=== PATIENT | female | born 2000 | race Caucasian/White ===

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

== ENCOUNTER 2020-02-12 17:21 | Emergency (ER) | payer OTHER, SELFPAY ==
[2020-02-12 17:30] VITALS: BP 141/90; PULSE 119; RESP 22; TEMP 36.7; O2SAT 100
--- NOTE | 2020-02-12 17:43 | ED.GENADULT ---
HPI - General Adult General Chief complaint: Anxiety Stated complaint: Took Sertrline and has chest pain Time Seen by Provider: 02/12/20 17:50 Source: patient Mode of arrival: ambulatory Limitations: no limitations History of Present Illness HPI narrative: 19-year-old female patient presents to the [facility] with complaints of midsternal chest pain that started today. Patient states she took half a pill of her sertraline that was prescribed to her back in 2017. Patient states she took it because she has been feeling very anxious and depressed recently. Patient does have history of anxiety, depression and panic attacks. Patient states about 30 minutes after she took the 25 mg sertraline she started having the chest pain. Denies shortness of breath, denies lightheadedness, dizziness or vision changes. Denies any fevers, body aches or chills. Denies any abdominal pain, nausea, vomiting or diarrhea. Patient states she was on the antidepressant medications consistently a couple of years ago but has not been on it for quite a while now and does not take anything consistently for her depression anxiety. Patient states that because she is over 18 she no longer sees her [facility] skinner and is looking for a new adult doctor. Patient denies any SI or HI at this time Related Data Home Medications Medication Instructions Recorded Confirmed No Home Medications 07/05/19 02/12/20 Allergies Allergy/AdvReac Type Severity Reaction Status Date / Time No Known Allergies Allergy Unknown Unverified 02/12/20 17:38 Review of Systems Review of Systems: Narrative: CONSTITUTIONAL: Denies fever, chills, or sweats. EYES: Denies visual changes, redness, or discharge. ENT: Denies rhinorrhea, congestion, sore throat, or otalgia. CARDIOVASCULAR: Positive midsternal chest pain, denies palpitations, or edema. RESPIRATORY: Denies cough or dyspnea. GASTROINTESTINAL: Denies abdominal pain, nausea, vomiting, or diarrhea. GENITOURINARY: Denies dysuria or hematuria. SKIN: Denies rash or itching. MUSCULOSKELETAL: Denies back pain, joint pain, or myalgia. NEUROLOGIC: Denies headache, numbness, or weakness. PSYCHIATRIC: Positive anxiety and depression. [facility] Past Medical History Medical History (Updated 02/12/20 @ 18:14 by VAUGHN Alaniz) Anxiety Ear infection Panic attacks UTI (urinary tract infection) Surgical History Surgical History History of tonsillectomy Social History Social History Smoking status: Never smoker Gender identity (if verbalized by the patient): Female Comments At the time of my signature I agree with nursing past medical history, surgical, social, and family history. There is no relevant family history pertinent to the presenting complaint. Exam Narrative: Exam Narrative: GENERAL: Well-appearing, well-nourished, and in no acute distress. HEAD: Normocephalic, atraumatic. EYES: PERRLA and EOMI. ENT: Nares clear, no rhinorrhea or epistaxis. Mucous membranes moist. NECK: Supple. No lymphadenopathy CHEST: Clear to auscultation. No respiratory distress. Patient will talk in clear complete sentences. HEART: Regular rate and rhythm. No murmur heard. Normal peripheral pulses. ABDOMEN: Soft, nontender, nondistended, normal active bowel sounds. EXTREMITIES: Normal range of motion. No edema. SKIN: Warm, dry, no rash. NEURO: No focal deficits. Alert and oriented x3. Course Reevaluation(s) Reevaluation #1: Discussed with patient that I think that her chest pain and her higher heart rate is most likely due to her anxiety however we can send her to the ER if she would like further evaluation of the chest pain. Patient states she would like to go to the ER because she has a family history of cardiac issues and just wants to make sure her heart is okay. Discussed with patient that we will send her to
== END 2020-02-12 18:09 | disposition short-term general hospital (02) ==
PROVIDERS: Emergency Provider Nurse Practitioner Family
DX: F41.9 Anxiety disorder, unspecified (principal); R07.9 Chest pain, unspecified; R00.0 Tachycardia, unspecified
CPT/HCPCS: 99212; G0463

== ENCOUNTER 2020-02-12 18:27 | Emergency (ER) | payer OTHER, SELFPAY ==
--- NOTE | ~2020-02-12 | XR_ITS ---
XR chest 2V DATE: 02/12/2020 19:49 INDICATION: Lower chest pain TECHNIQUE: PA and lateral views COMPARISON: 04/21/2014 PA and lateral chest FINDINGS: No pulmonary infiltrate or consolidation, pleural effusion or pulmonary vascular congestion or pneumothorax. Normal heart size. No hilar or mediastinal enlargement. Included skeletal structure s are unremarkable. IMPRESSION: No active cardiopulmonary disease Reviewed, dictated and finalized at location A.
[2020-02-12 18:34] VITALS: BP 130/82; PULSE 114; RESP 17; TEMP 36.6; O2SAT 99
--- NOTE | 2020-02-12 19:08 | ECG_ITS ---
Measurements Intervals [place] Rate: 148 P: 76 VT: 141 QRS: 62 QRSD: 73 T: 42 QT: 267 QTc: 420 Interpretive Statements SINUS TACHYCARDIA MINIMAL Q WAVES- ANTEROLAT/INF LEADS BASELINE ARTIFACT- II, III, AVF ABNORMAL ECG Electronically Signed On 02-12-2020 20:39:41 CDT by Jules Singh D.O.
[2020-02-12 19:28] VITALS: BP 139/89; PULSE 132; RESP 19; O2SAT 100
[2020-02-12 19:53] LABS: Basophils Percent Auto 0.4 % (0.2-1.2); Eosinophils Percent Auto 0.1 % (0-4.4); Hematocrit 40.8 % (37.0-47.0); Hemoglobin 14.7 g/dL (12.0-15.0); Immature Granulocyte Absolute 0.03 K/mm3 (0.00-0.031); Immature Granulocyte Percent A 0.3 % (0-0.5); Lymphocytes Absolute Auto 1.41 K/mm3 (0.9-3.2); Lymphocytes Percent Auto 14.6 % (18.3-44.2); Mean Corpuscular Hemoglobin 32.5 pg (26-34); Mean Corpuscular Volume 90.1 fl (80-100); Mean Platelet Volume 12.1 fl (7.4-10.4); Monocytes Absolute Auto 0.4 K/mm3 (0.1-0.6); Monocytes Percent Auto 4.5 % (2.6-8.5); Neutrophils Absolute Auto 7.7 K/mm3 (1.3-6.7); Neutrophils Percent Auto 80.1 % (45.5-73.1); Platelet Count Result 182 k/mm3 (150-375); Red Blood Count 4.53 M/mm3 (4.2-5.4); Red Cell Distribution Width 11.4 % (11.5-14.5); White Blood Count 9.6 K/mm3 (4.5-10.0)
[2020-02-12 19:57] LABS: Anion Gap 8 mmol/L (8-16); Blood Urea Nitrogen 10 mg/dL (8-21); Calcium 9.7 mg/dL (8.9-10.7); Carbon Dioxide 25 mmol/L (22-30); Chloride 107 mmol/L (98-107); Estimated CRCL calculation 101 ml/min; Estimated Glomerular Filt Rate > 60; Glucose 94 mg/dL (65-105); Potassium 3.9 mmol/L (3.4-5.0); Sodium 140 mmol/L (134-143)
[2020-02-12 20:09] LABS: Troponin I < 0.012 ng/mL (0.000-0.034)
[2020-02-12 20:12] LABS: INR 1.2; Prothrombin Time 14.6 Seconds (11.1-14.7)
[2020-02-12 20:13] LABS: Partial Thromboplastin Time 30.5 SECONDS (22.3-36.8)
--- NOTE | 2020-02-12 20:35 | ED.ANXIETY ---
HPI - Anxiety General Chief Complaint: Anxiety Stated Complaint: ANXIETY Time Seen by Provider: 02/12/20 18:51 Source: patient Mode of arrival: ambulatory Limitations: no limitations History of Present Illness HPI narrative: This is a 19 year old female that presents to the ER for anxiety. Reports she was seen at the urgent care for this and sent here for further evaluation. Reports she was feeling anxious today and took one of her antidepressants. Reports since then she has had intermittent substernal chest pain that are sharp in nature. Denies fever, cough, or shortness of breath. Related Data Home Medications Medication Instructions Recorded Confirmed No Home Medications 07/05/19 02/12/20 Allergies Allergy/AdvReac Type Severity Reaction Status Date / Time No Known Allergies Allergy Unknown Verified 02/12/20 19:01 Review of Systems Review of Systems: Narrative: CONSTITUTIONAL: Denies fever CARDIOVASCULAR: Reports chest pain. Denies edema. RESPIRATORY: Denies cough or dyspnea. All systems reviewed & are unremarkable except as noted in HPI and below PMFSH Past Medical History Medical History (Updated 02/12/20 @ 22:02 by Neda Wheeler PA-C) Anxiety Ear infection Panic attacks UTI (urinary tract infection) Surgical History Surgical History History of tonsillectomy Social History Social History Smoking status: Never smoker Gender identity (if verbalized by the patient): Female Exam Narrative: Exam Narrative: GENERAL: Well-appearing, well-nourished, and in no acute distress. HEAD: Normocephalic, atraumatic. EYES: EOMI. NECK: Supple. No adenopathy or masses. CHEST: Clear to auscultation. No respiratory distress. No wheezes rales or rhonchi HEART: Regular rate and rhythm. No murmur heard. Normal peripheral pulses. EXTREMITIES: Normal range of motion. No edema. SKIN: Warm, dry, no rash. NEURO: No focal deficits. Alert and oriented x3. PSYCH: Normal mood and affect Course Vital Signs Vital signs: Vital Signs Temperature 97.8 F 02/12/20 18:34 Pulse Rate 114 H 02/12/20 18:34 Respiratory Rate 17 02/12/20 18:34 Blood Pressure 130/82 10/18/20 18:34 Pulse Oximetry 99 02/12/20 18:34 Temperature 97.8 F 02/12/20 18:34 Pulse Rate 98 02/12/20 21:43 Respiratory Rate 18 02/12/20 21:34 Blood Pressure 150/87 H 02/12/20 21:34 Pulse Oximetry 100 02/12/20 21:34 MDM - Anxiety MDM Narrative Medical decision making narrative: Patient presents to the emergency department for anxiety today. Reports she tried to take her sertraline, but then developed intermittent substernal chest pain which concerned her. She was seen at the urgent care for this and sent here for further evaluation. Patient tachycardic upon arrival, this normalized with IV fluids. CBC and metabolic panel without concerning findings. Chest x-ray is without acute changes. EKG without concerning changes and baseline troponin is negative. Patient and family updated on case findings. She is stable and felt appropriate for further outpatient evaluation. She will be given a primary doctor for follow-up. She was given warnings to return to the ER Lab Data Attestation: I reviewed the patient's lab results. Result diagrams: 02/12/20 19:38 02/12/20 19:38 Labs: Lab Results 02/12/20 02/12/20 02/12/20 Range/Units 19:38 19:38 19:39 WBC 9.6 (4.5-10.0) K/mm3 RBC 4.53 (4.2-5.4) M/mm3 Hgb 14.7 (12.0-15.0) g/dL Hct 40.8 (37.0-47.0) % MCV 90.1 (80-100) fl MCH 32.5 (26-34) pg MCHC 36.0 (32-36) g/dl RDW 11.4 L (11.5-14.5) % Plt Count 182 (150-375) k/mm3 MPV 12.1 H (7.4-10.4) fl Immature Gran % (Auto) 0.3 (0-0.5) % Neut % (Auto) 80.1 H (45.5-73.1) % Lymph % (Auto) 14.6 L (18.3-44.2) % [place] % (Auto) 4.
[2020-02-12] MEDS: SODIUM CHLORIDE 0.9% IV 1,000 ML 999 ML IV CONT (20:45)
[2020-02-12 20:58] VITALS: BP 137/91; PULSE 107; RESP 15; O2SAT 99
[2020-02-12 21:34] VITALS: BP 150/87; PULSE 110; RESP 18; O2SAT 100
[2020-02-12 21:43] VITALS: PULSE 98
[2020-02-12 22:11] VITALS: BP 145/75; PULSE 105; RESP 16; O2SAT 99
== END 2020-02-12 22:13 | disposition home or self-care (01) ==
PROVIDERS: Physician Assistant; Emergency Provider Emergency Medicine
DX: R07.2 Precordial pain (principal); F41.9 Anxiety disorder, unspecified; Z87.440 Personal history of urinary (tract) infections
CPT/HCPCS: 36415; 71046; 80048; 84484; 85025; 85610; 85730; 93005; 96360; 99284; J7030

== ENCOUNTER → 2021-05-23 08:47 | Outpatient (CLI) | payer OTHER, SELFPAY ==
[2021-05-23 18:23] LABS: SARS-CoV-2 RNA PCR Positive
== END ==
PROVIDERS: PCP Emergency Medicine; Visit Provider Emergency Medicine
DX: U07.1 COVID-19 (principal)
CPT/HCPCS: C9803; U0003; U0005

== ENCOUNTER 2021-10-23 13:28 | Outpatient (CLI) | payer OTHER, SELFPAY ==
--- NOTE | ~2021-10-23 | XR_ITS ---
EXAM: XR wrist LT min 3V, XR hand RT min 3V, XR hand LT min 3V, XR wrist RT min 3V DATE: 10/23/2021 14:01 HISTORY: BI WRIST PAIN, HAND PAIN, LT 2ND 3RD FINGER FX? . COMPARISON: None available. FINDINGS: Normal mineralization. No fracture or dislocation. No lytic or blastic lesion. Joint space s are maintained. No erosion or periosteal change. Soft tissues within normal limits. IMPRESSION: Normal bilateral hand and bilateral wrist radiograph findings. Reviewed, dictated and finalized at location K. IMPRESSION: Normal bilateral hand and bilateral wrist radiograph findings. IMPRESSION: Normal bilateral hand and bilateral wrist radiograph findings. IMPRESSION: Normal bilateral hand and bilateral wrist radiograph findings.
[2021-10-23 14:31] LABS: Hemoglobin 14.1 g/dL (12.0-15.0); Mean Corpuscular HGB Conc 35.3 g/dl (32-36); Mean Corpuscular Hemoglobin 32.1 pg (26-34); Mean Corpuscular Volume 91.1 fl (80-100); Platelet Count Result 212 k/mm3 (150-375); Red Blood Count 4.39 M/mm3 (4.2-5.4); Red Cell Distribution Width 11.9 % (11.5-14.5); White Blood Count 8.1 K/mm3 (4.5-10.0)
[2021-10-23 14:40] LABS: Alanine Aminotransferase 18 U/L (6-35); Albumin Level 4.4 g/dL (3.5-5.1); Alkaline Phosphatase 68 U/L (38-126); Anion Gap 5 mmol/L (8-16); Aspartate Amino Transferase 24 U/L (14-36); Bilirubin,Total 0.3 mg/dL (0.2-1.3); Blood Urea Nitrogen 11 mg/dL (7-17); Carbon Dioxide 30 mmol/L (22-30); Chloride 107 mmol/L (98-107); Estimated Glomerular Filt Rate > 60; Glucose 82 mg/dL (65-110); Potassium 3.8 mmol/L (3.4-5.0); Sodium 142 mmol/L (137-145)
[2021-10-23 14:42] LABS: Rheumatoid Factor < 8.6 IU/ML (<12)
[2021-10-23 15:12] LABS: Thyroid Stimulating Hormone 0.578 uIU/mL (0.465-4.680)
[2021-10-23 15:15] LABS: Hemoglobin A1C 4.3 % (<5.7)
[2021-10-23 15:29] LABS: Free T4 Free Thyroxine 1.03 ng/mL (0.78-2.19); Vitamin D 25 Hydroxy 31.5 ng/mL
[2021-10-23 16:16] LABS: Erythrocyte Sedimentation Rate 5 mm/hr (0-20)
== END 2021-10-23 13:29 | disposition home or self-care (01) ==
PROVIDERS: PCP Emergency Medicine; Visit Provider Emergency Medicine
DX: M25.531 Pain in right wrist (principal); M25.542 Pain in joints of left hand; M25.541 Pain in joints of right hand
CPT/HCPCS: 36415; 73110; 73130; 80053; 82306; 83036; 84439; 84443; 85027; 85652; 86038; 86039; 86430

== ENCOUNTER 2022-01-16 16:10 | Emergency (ER) | payer OTHER, SELFPAY ==
[2022-01-16 16:17] VITALS: BP 144/88; PULSE 84; RESP 16; TEMP 36.3; O2SAT 100
--- NOTE | 2022-01-16 16:17 | ED.NAVMDI ---
HPI - Nausea/Vomiting/Diarrhea General Chief complaint: Nausea/Vomiting/Diarrhea Stated complaint: nausea, vomitting Time Seen by Provider: 01/16/22 16:25 Source: patient and RN notes reviewed Mode of arrival: ambulatory Limitations: no limitations History of Present Illness HPI Narrative: 21-year-old female presents with concern for nausea, vomiting, diarrhea since yesterday. Reports after she ate at a [place] restaurant she began having cramping and diarrhea, reports today she is having several episodes of vomiting. She denies abdominal pain, fever, body aches, chills, sweats. She denies upper respiratory symptoms. She reports a friend who ate at the same restaurant has similar symptoms. She denies any [id number] intervention MD elicited complaint: nausea, vomiting and diarrhea Related Data Allergies Allergy/AdvReac Type Severity Reaction Status Date / Time No Known Allergies Allergy Unknown Verified 02/12/20 19:01 Review of Systems Review of Systems: CONSTITUTIONAL: Denies malaise, chills, sweats, or fever. ENT: Denies rhinorrhea, congestion, sinus pain, otalgia or sore throat. CARDIOVASCULAR: Denies chest pain, palpitations, or edema. RESPIRATORY: Denies cough or dyspnea. GASTROINTESTINAL: Denies abdominal pain, bloody, or mucous stools. Reports nausea vomiting and diarrhea GENITOURINARY: Denies dysuria or hematuria. MUSCULOSKELETAL: Denies myalgia. NEUROLOGIC: Denies headache. All systems reviewed & are unremarkable except as noted in HPI and below PMFSH Past Medical History Medical History (Updated 01/16/22 @ 16:39 by Luisana Stone NP) (~2018) Anxiety Ear infection Panic attacks UTI (urinary tract infection) Surgical History Surgical History (Updated 09/10/21 @ 08:56 by Dorota Schmidt) History of tonsillectomy (~2008) Family History Family History (Updated 09/10/21 @ 08:56 by Dorota Schmidt) Father Hypertension Acute myocardial infarction Social History Social History Smoking status: Never smoker Gender identity (if verbalized by the patient): Female Comments At time of signature, agree with nursing past medical, surgical, social and family history. There is no relevant family history pertinent to the presenting complaint Exam Narrative: GENERAL: Well-appearing, well-nourished, and in no acute distress. HEAD: Normocephalic, atraumatic. EYES: PERRLA, conjunctivae clear, and EOMI. ENT: Nares clear, turbinates pink, no rhinorrhea or epistaxis. Mucous membranes moist. Oropharynx without edema, erythema, or lesions. Tonsils not enlarged and without exudate. NECK: Supple. No lymphadenopathy CHEST: Speaks in full sentences. No respiratory distress. HEART: Regular rate and rhythm. ABDOMEN: Soft, flat, nondistended, nontender. No guarding, rebound tenderness, or rigidity. No pulsatile masses. Bowel sounds present in all four quadrants. No organomegaly. Negative Rasheed?s sign. No periumbilical tenderness. No Supra public tenderness or distension. SKIN: Warm, dry, no rash. NEURO: Alert and oriented x3. PSYCH: Normal mood and affect Course Course Emergency Course: Patient is aware of diagnosis, understands and agrees to treatment plan. Anticipatory guidance given. Patient agrees to follow-up as directed and is aware of reasons to seek care at the emergency department. Portions of this record may have been created with voice recognition software Level of Care: Express Care Visit Vital Signs Vital signs: Vital Signs Temperature 97.4 F L 01/16/22 16:17 Pulse Rate 84 01/16/22 16:17 Respiratory Rate 16 01/16/22 16:17 Blood Pressure 144/88 H 01/16/22 16:17 Pulse Oximetry 100 01/16/22 16:17 Oxygen Delivery Room Air 01/16/22 16:17 Temperature 97.4 F L 01/16/22 16:17 Pulse Rate 84 01/16/22 16:17 Respiratory Rate 16 01/16/22 16:17 Blood Pressure 144/88 H 01/16/22 16:17 Pulse Oxim
== END 2022-01-16 16:46 | disposition home or self-care (01) ==
PROVIDERS: Emergency Provider Nurse Practitioner; PCP Emergency Medicine
DX: R11.2 Nausea with vomiting, unspecified (principal); R19.7 Diarrhea, unspecified
CPT/HCPCS: 99213; G0463

== ENCOUNTER 2024-02-15 11:00 | Emergency (ER) | payer OTHER, SELFPAY ==
[2024-02-15 11:06] VITALS: BP 130/85; PULSE 92; RESP 18; TEMP 36.4; O2SAT 99
[2024-02-15 11:34] LABS: BEDSIDEPREGUCG Negative (Negative)
[2024-02-15 11:38] VITALS: TEMP 36.5
[2024-02-15 11:39] VITALS: BP 119/65; BP 125/77; PULSE 88
[2024-02-15 11:40] VITALS: BP 123/70; PULSE 97
[2024-02-15 11:51] LABS: Basophils Percent Auto 0.2 % (0.2-1.2); Eosinophils Absolute Auto 0.1 K/mm3 (0-0.3); Eosinophils Percent Auto 0.6 % (0-4.4); Hematocrit 41.3 % (37.0-47.0); Immature Granulocyte Absolute 0.05 K/mm3 (0.00-0.031); Immature Granulocyte Percent A 0.4 % (0-0.5); Lymphocytes Percent Auto 2.2 % (18.3-44.2); Mean Corpuscular HGB Conc 36.3 g/dl (32-36); Mean Platelet Volume 11.6 fl (7.4-10.4); Monocytes Absolute Auto 0.5 K/mm3 (0.1-0.6); Monocytes Percent Auto 3.9 % (2.6-8.5); Neutrophils Absolute Auto 12.7 K/mm3 (1.3-6.7); Neutrophils Percent Auto 92.7 % (45.5-73.1); Platelet Count Result 171 k/mm3 (150-375); Red Blood Count 4.54 M/mm3 (4.2-5.4); Red Cell Distribution Width 11.7 % (11.5-14.5); White Blood Count 13.7 K/mm3 (4.5-10.0)
[2024-02-15 12:02] LABS: Alanine Aminotransferase 12 U/L (6-35); Albumin Level 4.5 g/dL (3.5-5.1); Alkaline Phosphatase 70 U/L (38-126); Anion Gap 8 mmol/L (4-12); Aspartate Amino Transferase 21 U/L (14-36); Bilirubin,Total 1.2 mg/dL (0.2-1.3); Blood Urea Nitrogen 17 mg/dL (7-17); Calcium 9.3 mg/dL (8.4-10.2); Carbon Dioxide 24 mmol/L (22-30); Chloride 107 mmol/L (98-107); Estimated CRCL calculation 98 ml/min; Estimated Glomerular Filt Rate > 60; Glucose 110 mg/dL (65-110); Lipase 45 U/L (23-300); Sodium 139 mmol/L (137-145)
[2024-02-15 12:05] LABS: Add Urine Microscopic? YES; Appearance Urine Cloudy (Clear); Bacteria Urine None Seen /hpf; Bilirubin Urine Negative (Negative); Blood Urine Negative (Negative); Color Urine Yellow (Yellow); Glucose Urine UA Negative (Negative); Ketones Urine Trace mg/dL (Negative); Leukocyte Esterase Ur Trace LEU/UL (Negative); Need Manual Microscopic Reviewed; Nitrate Urine Negative (Negative); Non Pathogenic Casts 0-2; Protein Urine Negative (Negative); RBC Urine 0-2 /hpf (0-2); Specific Grav Ur 1.019 (1.001-1.035); Squamous Epithelial Cell Urine Many /hpf (Few); Urobilinogen Urine 0.2 mg/dL (<2.0); WBC Urine 0-5 /hpf (0-3)
[2024-02-15] MEDS: SODIUM CHLORIDE 0.9% IV 1,000 ML 999 ML IV CONT (12:19)
--- NOTE | 2024-02-15 12:19 | ED.GENADULT ---
HPI - General Adult General Chief complaint: Nausea/Vomiting/Diarrhea Stated complaint: nasuea,vomiting Time Seen by Provider: 02/15/24 11:31 History of Present Illness HPI narrative: 23-year-old female present to the emergency department for evaluation for nausea vomiting and diarrhea. Patient states she does smoke THC daily but has no prior history of cannabinoid hyperemesis syndrome. Patient does not describe issues with cyclic vomiting. Patient denies any prior abdominal surgical history. Related Data Allergies Allergy/AdvReac Type Severity Reaction Status Date / Time No Known Allergies Allergy Unknown Verified 02/15/24 11:01 Review of Systems Review of Systems: All systems reviewed & are unremarkable except as noted in HPI and below PMFSH Past Medical History Medical History (~2017) Anxiety Ear infection Panic attacks Suppression of menses UTI (urinary tract infection) Surgical History Surgical History History of tonsillectomy (~2008) Family History Family History Father Hypertension Acute myocardial infarction Social History Social History Smoking status: Never smoker Alcohol intake: current Alcohol use details: occasional Substance use: current Substance use type: marijuana Gender identity (if verbalized by the patient): Female Exam Narrative: APPEARANCE: Well appearing, no pain, no distress, well-nourished. HEAD: normocephalic, atraumatic. EYES: PERRLA/EOMI, conjunctivae clear. NOSE: Normal no drainage EARS:TMS clear with good light reflex. THROAT: Pharynx clear, no exudate. NECK: Supple. No adenopathy, no masses. RESPIRATORY: Airway patent, respirations nonlabored. Clear to auscultation bilaterally, no rales, rhonchi, wheezing. CARDIOVASCULAR: Regular rate and rhythm without murmurs rubs or gallops. ABDOMINAL: Soft, nontender, nondistended, normal bowel sounds MUSCULOSKELETAL: Moves all extremities. Strength/ROM intact, No edema, No calf tenderness. NEURO: Alert. Cranial nerves II through XII intact. Grossly intact SKIN: Warm, dry. Normal Color Course Vital Signs Vital signs: Vital Signs Temperature 97.6 F 02/15/24 11:06 Pulse Rate 92 02/15/24 11:06 Respiratory Rate 18 02/15/24 11:06 Blood Pressure 130/85 02/15/24 11:06 Pulse Oximetry 99 02/15/24 11:06 Oxygen Delivery Room Air 02/15/24 11:06 Temperature 97.7 F 02/15/24 11:38 Pulse Rate 65 02/15/24 12:37 Respiratory Rate 14 02/15/24 12:37 Blood Pressure 123/70 02/15/24 11:40 Pulse Oximetry 100 02/15/24 12:37 Oxygen Delivery Room Air 02/15/24 11:06 Medical Decision Making MDM Narrative Medical decision making narrative: 23-year-old female present to the emergency department for evaluation for persistent nausea and vomiting today. Patient is afebrile but does have a leukocytosis of 13.7 a stable hemoglobin of 15. Patient has no significant abnormalities CMP UA was negative for infection. On re-evaluation patient reports he does feel improved. Patient was treated with IV Zofran and IV fluids. Differential Diagnosis Differential Diagnosis: Gastroenteritis, cannabinoid hyperemesis syndrome, nausea vomiting diarrhea Vital Signs Vital Signs: Vital Signs Temperature 97.6 F 02/15/24 11:06 Pulse Rate 92 02/15/24 11:06 Respiratory Rate 18 02/15/24 11:06 Blood Pressure 130/85 02/15/24 11:06 Pulse Oximetry 99 02/15/24 11:06 Oxygen Delivery Room Air 02/15/24 11:06 Temperature 97.7 F 02/15/24 11:38 Pulse Rate 65 02/15/24 12:37 Respiratory Rate 14 02/15/24 12:37 Blood Pressure 123/70 02/15/24 11:40 Pulse Oximetry 100 02/15/24 12:37 Oxygen Delivery Room Air 02/15/24 11:06 Lab Data Lab results reviewed: Gabriel
[2024-02-15] MEDS: PANTOPRAZOLE SODIUM IV 40 MG VIAL IV PUSH (12:23)
[2024-02-15] MEDS: ONDANSETRON INJ 4 MG/2 ML VIAL IV PUSH (12:27)
[2024-02-15] MEDS: FAMOTIDINE 20 MG/2 ML VIAL IV PUSH (12:28)
[2024-02-15 12:37] VITALS: PULSE 65; RESP 14; O2SAT 100
== END 2024-02-15 13:53 | disposition home or self-care (01) ==
PROVIDERS: Emergency Provider Emergency Medicine
DX: R11.2 Nausea with vomiting, unspecified (principal); F41.9 Anxiety disorder, unspecified; Z87.440 Personal history of urinary (tract) infections
CPT/HCPCS: 36415; 80053; 81001; 81025; 83690; 85025; 96374; 96375; 99284; J2405; J2470; J7030

== ENCOUNTER 2024-10-05 10:17 | Outpatient (CLI) | payer OTHER, SELFPAY ==
--- OUTSIDE RECORDS SUMMARY | 2024-10-05 11:46 | XMS_ITS | CONTINUITY OF CARE DOCUMENT ---
Author Name erma ritchie Address Unknown Organization [facility] Address [address] [place] [address] Phone [phone] Care Team Providers Care Incident Response Specialist Name Role Phone James Meraz MD Unavailable James Meraz MD Unavailable INSURANCE PROVIDERS Payer name Policy type / Coverage type [employer] ID [employer] MEDICAID (2) Medicaid [id number]
[2024-10-05 12:28] LABS: Basophils Percent Auto 0.6 % (0.2-1.2); Eosinophils Percent Auto 0.7 % (0-4.4); Hematocrit 40.1 % (37.0-47.0); Immature Granulocyte Absolute 0.01 K/mm3 (0.00-0.031); Immature Granulocyte Percent A 0.2 % (0-0.5); Lymphocytes Percent Auto 20.2 % (18.3-44.2); Mean Corpuscular HGB Conc 34.9 g/dl (32-36); Mean Corpuscular Hemoglobin 32.2 pg (26-34); Mean Corpuscular Volume 92.2 fl (80-100); Monocytes Absolute Auto 0.4 K/mm3 (0.1-0.6); Neutrophils Absolute Auto 3.9 K/mm3 (1.3-6.7); Neutrophils Percent Auto 71.3 % (45.5-73.1); Platelet Count Result 181 k/mm3 (150-375); Red Blood Count 4.35 M/mm3 (4.2-5.4); Red Cell Distribution Width 11.4 % (11.5-14.5); White Blood Count 5.4 K/mm3 (4.5-10.0)
[2024-10-05 12:43] LABS: Alanine Aminotransferase 14 U/L (6-35); Albumin Level 4.5 g/dL (3.5-5.1); Alkaline Phosphatase 69 U/L (38-126); Anion Gap 7 mmol/L (4-12); Aspartate Amino Transferase 34 U/L (14-36); Bilirubin,Total 0.5 mg/dL (0.2-1.3); Blood Urea Nitrogen 12 mg/dL (7-17); CRP < 0.5 mg/dL (<1.0); Calcium 9.3 mg/dL (8.4-10.2); Carbon Dioxide 22 mmol/L (22-30); Chloride 108 mmol/L (98-107); Estimated Glomerular Filt Rate > 60; Glucose 90 mg/dL (65-110); Potassium 3.9 mmol/L (3.4-5.0); Rheumatoid Factor < 12.0 IU/ML (<12); Sodium 137 mmol/L (137-145)
[2024-10-05 13:24] LABS: Erythrocyte Sedimentation Rate 6 mm/hr (0-20)
[2024-10-06 07:48] LABS: ANA Cascade Screen NEGATIVE (NEGATIVE)
[2024-10-06 08:48] LABS: Prolactin 6.1 ng/mL
[2024-10-06 08:59] LABS: Progesterone 0.8 ng/mL
== END 2024-10-05 10:18 | disposition home or self-care (01) ==
LOC: ANHGOSHLAB 10:17
PROVIDERS: PCP Internal Medicine; Visit Provider Clinical Nurse Specialist
DX: N92.6 Irregular menstruation, unspecified (principal); R79.89 Other specified abnormal findings of blood chemistry; Z13.228 Encounter for screening for other metabolic disorders; R76.8 Other specified abnormal immunological findings in serum
CPT/HCPCS: 36415; 80053; 84144; 84146; 84443; 85025; 85652; 86038; 86140; 86225; 86235; 86364; 86430